=== PATIENT | female | born 1970 | race Two or more races ===

== ENCOUNTER 2022-10-28 11:41 | Emergency (ER) | payer OTHER ==
[~2022-10-28] VITALS: Ht 154.9 cm; Wt 68.0 kg
== END 2022-10-28 15:04 | disposition home or self-care (01) ==
LOC: ER 11:41
DX: H66.90 Otitis media, unspecified, unspecified ear (principal)

== ENCOUNTER 2024-11-29 12:15 | Emergency (ER) | payer OTHER ==
[~2024-11-29] VITALS: Ht 157.5 cm; Wt 68.0 kg
[2024-11-29] MEDS ORDERED: COZAAR50 MG PO (13:55)
[2024-11-29] MEDS ORDERED: LETROZOLE2.5 MG PO (13:55)
[2024-11-29] MEDS ORDERED: SIMVASTATIN5 MG PO (13:56)
[2024-11-29] MEDS ORDERED: CEFTRIAXONE SODIUM 1,000 MG VIAL IM ONE (14:15)
[2024-11-29] MEDS ORDERED: METHYLPREDNISOLONE SOD SUCC 40 MG VIAL IM ONE (14:15)
[2024-11-29] MEDS ORDERED: FAMOtidine 10 MG/ML (4ML VIAL) IV PUSH ONE (14:15)
[2024-11-29] MEDS ORDERED: CEFTRIAXONE SODIUM 1,000 MG VIAL ONE (15:01)
[2024-11-29] MEDS ORDERED: METHYLPREDNISOLONE SOD SUCC 40 MG VIAL ONE (15:01)
[2024-11-29] MEDS ORDERED: FAMOTIDINE/PF 20 MG/2 ML VIAL ONE (15:02)
[2024-11-29 15:43] LABS: HEMATOCRIT 38.7 % (36.0-45.00); HEMOGLOBIN 13.4 g/dL (12.0-15.00); MEAN CORPUSCULAR HEMOGLOBIN 30.7 pg (27.00-32.0); MEAN CORPUSCULAR HGB CONC 34.5 g/dl (32.0-36.0); PLATELET COUNT 236 K/uL (150-450); RED BLOOD COUNT 4.35 M/uL (4.00-6.00)
[2024-11-29] MEDS ORDERED: GILTUSS COUGH-118 M1 PO (18:44)
[2024-11-29] MEDS ORDERED: ACETAMINOPHEN500 M1 PO (18:44)
== END 2024-11-29 18:55 | disposition home or self-care (01) ==
LOC: ER 12:17
PROVIDERS: General Practice
DX: B34.9 Viral infection, unspecified (principal); Z20.822 Contact with and (suspected) exposure to COVID-19; I10 Essential (primary) hypertension; Z85.3 Personal history of malignant neoplasm of breast